=== PATIENT | female | born 1945 | race Caucasian/White ===

== ENCOUNTER 2016-09-16 02:24 | Inpatient (IN) | payer OTHER, MEDICAID ==
[~2016-09-16] VITALS: Ht 172.7 cm; Wt 74.4 kg
[2016-09-16] VITALS (7 sets, daily range): BP systolic 108–197; BP diastolic 47–86; PULSE 55–73; RESP 16–18; TEMP 96.5–98.8; O2SAT 94–98
--- NOTE | 2016-09-16 02:24 | NUR ---
Patient to ER bed 8 to gown for evaluation. Side rails up. Report given to RYLIE EARLY.
--- NOTE | 2016-09-16 02:30 | NUR ---
pt AAOx4 brought by family for CP 02/18 and high blood pressure at home. pt reports little SOB. Hx HTN. aware.
--- NOTE | 2016-09-16 02:40 | NUR ---
ER Dr. Escobar at bedside examining patient.
[2016-09-16] MEDS ORDERED: NACL 0.9% 1,000 ML IV ONE (02:43)
[2016-09-16] MEDS ORDERED: ASPIRIN 81 MG TAB.CHEW PO ONE (02:45)
[2016-09-16] MEDS ORDERED: LORazepam 2 MG/ML VIAL (FOR ER USE) IVP ONE (03:15)
[2016-09-16] MEDS ORDERED: NITROGLYCERIN 1 INCH (GM) OINT. TD ONE (03:15)
[2016-09-16] MEDS ORDERED: cloNIDine HCL 0.1 MG TABLET PO ONE (03:15)
[2016-09-16] MEDS ORDERED: FAMOTIDINE PF 20 MG/2 ML VIAL IVP ONE (03:15)
[2016-09-16] MEDS ORDERED: ONDANSETRON HCL 4 MG/2 ML VIAL IVP ONE (03:30)
[2016-09-16 03:33] LABS: BASOPHILS % (AUTO) 0.5 % (0.0-2.0); EOSINOPHILS # (AUTO) 0.3 K/uL (0.0-0.4); EOSINOPHILS % (AUTO) 5.3 % (0.0-4.0); HEMATOCRIT 35.8 % (36-48); HEMOGLOBIN 12.1 g/dL (12.0-16.0); LYMPHOCYTES # (AUTO) 2.7 K/uL (1.0-5.5); LYMPHOCYTES % (AUTO) 45.8 % (20.5-51.5); MEAN CORPUSCULAR HEMOGLOBIN 28 pg (27-31); MEAN CORPUSCULAR HGB CONC 34 % (32-36); MEAN CORPUSCULAR VOLUME 82 fL (79.0-98.0); MONOCYTES # (AUTO) 0.6 K/uL (0.0-1.0); MONOCYTES % (AUTO) 10.9 % (1.7-9.3); NEUTROPHILS # (AUTO) 2.1 K/uL (1.8-7.7); NEUTROPHILS % (AUTO) 37.5 % (40.0-70.0); PLATELET COUNT (AUTO) 217 K/uL (130-430); RED BLOOD CELL COUNT(AUTO) 4.36 MIL/uL (4.2-6.2); RED CELL DISTRIBUTION WIDTH 12.8 % (9.0-15.0); WHITE BLOOD COUNT (AUTO) 5.7 K/uL (4.8-10.8)
[2016-09-16 03:42] LABS: ANION GAP 7 (5-15); CHLORIDE 102 mmol/L (98-107); CREATININE 0.69 mg/dL (0.55-1.30); GLUCOSE 176 mg/dL (70-99); POTASSIUM 3.4 mmol/L (3.5-5.1); SODIUM SERUM 141 mmol/L (136-145); UREA NITROGEN, BLOOD 29 mg/dL (8-21)
[2016-09-16 03:45] LABS: GFR AFRICAN AMERICAN 108 mL/min (>90); INR 0.9 (0.8-1.2); PROTHROMBIN TIME 9.7 SECS (9.5-12.5)
[2016-09-16 03:51] LABS: ALANINE AMINOTRANSFERASE 61 U/L (12-78); ALBUMIN 3.3 g/dL (3.4-4.8); ASPARTATE AMINOTRANSFERASE 51 U/L (10-37); TOTAL BILIRUBIN 0.2 mg/dL (0.0-1.0); TOTAL PROTEIN, SERUM 7.4 g/dL (6.4-8.3)
[2016-09-16] MEDS ORDERED: CILO50TA PO (05:02)
[2016-09-16] MEDS ORDERED: MELO15TA13 PO (05:02)
[2016-09-16] MEDS ORDERED: ATOR40TA68 PO (05:03)
[2016-09-16] MEDS ORDERED: AMLO5TAB4 PO (05:04)
[2016-09-16] MEDS ORDERED: HYDR-4039 PO (05:04)
[2016-09-16] MEDS ORDERED: METO100T3 PO (05:05)
[2016-09-16] MEDS ORDERED: DONE5TAB3 PO (05:06)
[2016-09-16] MEDS ORDERED: AMLO5TAB92 PO (05:07)
[2016-09-16] MEDS ORDERED: ASPI81TA2 PO (05:08)
[2016-09-16] MEDS ORDERED: INSULIN REGULAR, HUMAN 100 UNITS/ML, 10 ML VIAL (novoLIN R) SUBCUT PRN (05:15)
[2016-09-16] MEDS ORDERED: NITROGLYCERIN 1 INCH (GM) OINT. TP SCH (05:15)
--- NOTE | 2016-09-16 05:30 | NUR ---
ADMIT NOTE Received pt from ER to the floor with a diagnosis of chest pain. Admission process initiated. patient oriented to pain management, safety and call light-teach back done.
--- NOTE | 2016-09-16 05:30 | NUR ---
pt transferred to telemetry via gurney accompanied by RN and MT. placed on heart monitor for transport. no s/s distress or IV infiltration. Placed in bed 116A. Report given to Isabel, all care endorsed.
[2016-09-16 05:32] LABS: BILIRUBIN,URINE NEGATIVE (NEGATIVE); BLOOD, URINE NEGATIVE (NEGATIVE); CLARITY/URINE CLEAR (CLEAR); COLOR,URINE YELLOW (YELLOW); GLUCOSE,URINE NEGATIVE (NEGATIVE); KETONES,URINE NEGATIVE (NEGATIVE); LEUKOCYTE ESTERASE ,URINE TRACE (NEGATIVE); NITRITE, URINE NEGATIVE (NEGATIVE); PH,URINE 6.5 (5.0-8.0); PROTEIN URINE TRACE (NEGATIVE); UROBILINOGEN,URINE 0.2 (0.2-1.0)
[2016-09-16 05:39] LABS: RBC,URINE 0-3 /HPF (0-3)
[2016-09-16 05:40] LABS: BACTERIA,URINE FEW /HPF (None Seen); MUCUS,URINE None Seen /LPF (None Seen)
--- NOTE | 2016-09-16 05:54 | NUR ---
RN ROUNDS RECEIVED PATIENT FROM ER. AOX4 TUNISIAN SPEAKING FEMALE, NO SOB NOTED, ON 2L NC. PATIENT DENIES ANY CHEST PAIN AT THIS TIME. VITALS STABLE. IV LINE INTACT AND PATENT, NO SIGNS OF INFILTRATION. POC DISCUSSED WITH PATIENT, VERBALIZED UNDERSTANDING, ORIENTED TO USE CALL LIGHT FOR NURSE ASSISTANCE, CALL LIGHT WITHIN REACH, WILL CLOSELY MONITOR.
--- NOTE | 2016-09-16 05:57 | NUR ---
Consultation Paged Reason for consultation: Chest Pain Was consult called: Yes Person who was notfied: Ary Consulting Physician: Dr Haynes; Dr Decker is on-call for Dr Haynes [employer] Specialty: Cardio [employer]
--- NOTE | 2016-09-16 06:41 | NUR ---
RN ROUNDS PATIENT RESTING QUIETLY IN BED, REMAINS ON 2L NC. BLOOD SUGAR CHECK THIS AM OF 202. SAFETY MEASURES MAINTAINED, CALL LIGHT REMAINS WITHIN REACH, WILL CONTINUE TO MONITOR UNTIL REPORT GIVEN TO AM NURSE.
[2016-09-16] MEDS: NITROGLYCERIN 1 INCH (GM) OINT. TP SCH ×4 (06:43→23:45)
[2016-09-16] MEDS: INSULIN REGULAR, HUMAN 100 UNITS/ML, 10 ML VIAL (novoLIN R) SUBCUT PRN ×3 (06:50→21:46)
--- NOTE | 2016-09-16 07:40 | NUR ---
CALLED ATTENDING , DR LAZCANO, RE: DIET ORDER. SPOKE TO FABIO
--- NOTE | 2016-09-16 08:00 | NUR ---
AM INITIAL NOTE Pt aaox4 Honduran speaking only but understands very little Italian. No complaints of chest pain or discomfort at this time. No distress noted. monitor worker in place with heart rate 56 sinus gurjit. Educated about safety and fall precautions. Encouraged to call for assistance. Call light within reach. Will monitor.
[2016-09-16] MEDS ORDERED: CARVEDILOL 6.25 MG TABLET (COREG) PO SCH (09:00)
[2016-09-16] MEDS ORDERED: LOSARTAN POTASSIUM 50 MG TABLET (COZAAR) PO SCH (09:00)
[2016-09-16] MEDS: CARVEDILOL 25 MG TABLET (COREG) PO SCH ×2 (09:06→21:39)
[2016-09-16] MEDS: LOSARTAN POTASSIUM 50 MG TABLET (COZAAR) PO SCH (09:06)
--- NOTE | 2016-09-16 10:55 | NUR ---
Rounds Pt asleep but easily awakened. No complaints of chest pain or discomfort. No distress noted. Encouraged to call for assistance. Call light within reach. Will monitor.
--- NOTE | 2016-09-16 12:00 | NUR ---
Notes Pt awake resting in bed eating breakfast. No complaints of chest pain or numbing of face. Blood sugar monitor 169. Insulin sliding scale administered. Kept comfortable. Encouraged to call for assistance. Call light within reach. will monitor.
--- NOTE | 2016-09-16 14:00 | NUR ---
Resting Pt asleep. No signs of facial grimacing for pain or discomfort. No distress noted. Call light within reach. Will monitor.
--- NOTE | 2016-09-16 16:53 | NUR ---
Rounds Pt asleep but easily awakened. No complaints of chest pain or numbing to her face. No distress noted. Blood sugar monitor 126. No insulin needed. Kept comfortable. Will monitor.
--- NOTE | 2016-09-16 18:52 | NUR ---
CLOSING NOTES PT AWAKE RESTING IN BED. NO COMPLAINTS OF CHEST PAIN OR NUMBNESS TO FACE. NO DISTRESS NOTED. ENCOURAGED TO CALL FOR ASSISTANCE. WILL ENDORSE CARE TO INCOMING NURSE.
--- NOTE | 2016-09-16 19:30 | NUR ---
NOTES RECEIVED THE PT FROM THE DAY NURSE,PT CYMRAES SPEAKING ONLY.BUT DENIES PAIN AT THIS TIME.MONITOR IN PLACE AND SHOWS SB IV TO LT WRIST INTACT NO REDNESS OR SWELLING NOTED.CALL LIGHT WITHIN REACH,SAFETY MEASURES IN PROGRESS. CONTINUE TO MONITOR.
[2016-09-16] MEDS ORDERED: ATORVASTATIN 20 MG TABLET PO SCH (21:00)
--- NOTE | 2016-09-16 21:30 | NUR ---
NOTES PT RESTING ,NO C/O CHEST PAIN OR SOB.CONTINUE TO MONITOR.
--- NOTE | 2016-09-16 22:03 | NUR ---
NOTES ACCUCHECK WAS 172 INSULIN GIVEN PER S/S/.
--- NOTE | 2016-09-16 23:39 | NUR ---
NOTES PT SLEEPING,AWAKEN FOR NITRO PASTE.PT WITH NO COMPLAINTS.CONTINUE TO MONITOR.
--- NOTE | 2016-09-17 01:20 | NUR ---
notes pt sleeping,call light within reach.continue to monitor.
--- NOTE | 2016-09-17 03:25 | NUR ---
notes pt remains asleep.call light within reach.continue to monitor.
--- NOTE | 2016-09-17 05:28 | NUR ---
notes pt resting quietly,call light within reach.no respiratory difficulty noted.continue to monitor.
[2016-09-17] MEDS: NITROGLYCERIN 1 INCH (GM) OINT. TP SCH (06:06)
[2016-09-17] MEDS: INSULIN REGULAR, HUMAN 100 UNITS/ML, 10 ML VIAL (novoLIN R) SUBCUT PRN (06:15)
--- NOTE | 2016-09-17 06:21 | NUR ---
notes pt awake alert with no complaints.accucheck was 158,insulin given per s/s,will endorse the care of the pt to the day nurse.
[2016-09-17 07:29] LABS: BASOPHILS % (AUTO) 0.8 % (0.0-2.0); EOSINOPHILS # (AUTO) 0.2 K/uL (0.0-0.4); EOSINOPHILS % (AUTO) 3.9 % (0.0-4.0); HEMATOCRIT 33.4 % (36-48); HEMOGLOBIN 11.1 g/dL (12.0-16.0); LYMPHOCYTES % (AUTO) 36.1 % (20.5-51.5); MEAN CORPUSCULAR HEMOGLOBIN 27 pg (27-31); MEAN CORPUSCULAR HGB CONC 33 % (32-36); MEAN CORPUSCULAR VOLUME 83 fL (79.0-98.0); MONOCYTES # (AUTO) 0.5 K/uL (0.0-1.0); MONOCYTES % (AUTO) 8.8 % (1.7-9.3); NEUTROPHILS # (AUTO) 2.9 K/uL (1.8-7.7); NEUTROPHILS % (AUTO) 50.4 % (40.0-70.0); PLATELET COUNT (AUTO) 190 K/uL (130-430); RED BLOOD CELL COUNT(AUTO) 4.05 MIL/uL (4.2-6.2); WHITE BLOOD COUNT (AUTO) 5.6 K/uL (4.8-10.8)
--- NOTE | 2016-09-17 07:30 | NUR ---
am assessment received pt in bed a/ox4 . tongan speaking.able to understand simple faroese. denies c/o of chest pain or sob at this time.res even and unlabored . no acute distress noted. instructed to use call light for help. verbalized understanding. sr on tele.will continue to monitor
[2016-09-17 07:52] VITALS: BP 136/59; PULSE 59; RESP 20; TEMP 98.2; O2SAT 94
[2016-09-17 08:14] LABS: CALCIUM 8.7 mg/dL (8.4-11.0); CREATININE 0.74 mg/dL (0.55-1.30); POTASSIUM 3.8 mmol/L (3.5-5.1); TOTAL BILIRUBIN 0.4 mg/dL (0.0-1.0)
[2016-09-17 08:15] LABS: ALBUMIN 2.8 g/dL (3.4-4.8); TOTAL PROTEIN, SERUM 6.6 g/dL (6.4-8.3)
[2016-09-17 08:16] LABS: THYROID STIMULATING HORMONE 1.88 uIu/mL (0.34-4.82)
[2016-09-17] MEDS: CARVEDILOL 25 MG TABLET (COREG) PO SCH (08:34)
[2016-09-17] MEDS: LOSARTAN POTASSIUM 50 MG TABLET (COZAAR) PO SCH (08:35)
[2016-09-17] MEDS ORDERED: SITA100T7 PO (09:14)
[2016-09-17] MEDS ORDERED: LOSA50TA3 PO (09:14)
[2016-09-17] MEDS ORDERED: COR25 PO (09:14)
--- NOTE | 2016-09-17 09:49 | NUR ---
Nutrition Update Seferino Scale 18 noted. Pt admitted for chest pain. Diet: [facility] BMI: 24.9 kg/m2 RD to follow per nutrition care standards.
--- NOTE | 2016-09-17 09:49 | NUR ---
md visit seen by dr ho. new order received for discharge
[2016-09-17 09:50] VITALS: BP 136/59; PULSE 62; RESP 18; TEMP 98.2; O2SAT 95
--- NOTE | 2016-09-17 10:45 | NUR ---
D/C Patient Patient given medication reconciliation form and D/C instructions. pt denies any chest pain or presure,Exit Care provided. Patient verbalized understanding. MD discussed with patient the results and treatment provided. Ambulatory with steady gait for discharge to home. Patient in stable condition, ID band removed. IV catheter removed, intact and dressing applied, no active bleeding. Patient educated on pain management. All belongings sent with patient.
--- NOTE | 2016-09-20 10:22 | NUR ---
Discharge Follow Up Phone Call [employer] phoned patient, , and patient's daughter, Michelle, , on 09/18/16, 09/19/16 and 09/20/16 and left voicemail messages with offer of assistance, Social Service contact information, and a request for information on the home health service that patient receives. No further calls will be attempted.
== END 2016-09-17 10:45 | disposition home health service (06) | DRG 305 ==
LOC: SED 02:24 → STU 05:15 → SED 05:30 → STU 06:08
PROVIDERS: ADMIT Internal Medicine; ATTEND Internal Medicine
DX: I16.0 Hypertensive urgency (principal); E11.649 Type 2 diabetes mellitus with hypoglycemia without coma; M19.90 Unspecified osteoarthritis, unspecified site; Z82.49 Family history of ischemic heart disease and other diseases of the circulatory system; E78.5 Hyperlipidemia, unspecified; Z83.3 Family history of diabetes mellitus; Z86.73 Personal history of transient ischemic attack (TIA), and cerebral infarction without residual deficits; Z90.710 Acquired absence of both cervix and uterus; Z79.899 Other long term (current) drug therapy; Z79.82 Long term (current) use of aspirin
CPT/HCPCS: 36415; 71010; 71250-TC; 80053; 80061; 81000-TC; 82962; 83036; 83735-TC; 84443-TC; 84484; 85025; 85379; 85610-TC; 85730-TC; 87086; 93005; 96374; 96375; 99285; J1815; J2060; J2405; J3490; J7030

== ENCOUNTER 2017-12-14 21:10 | Emergency (ER) | payer OTHER, MEDICAID ==
[~2017-12-14] VITALS: Ht 157.5 cm; Wt 65.8 kg
[~2017-12-14 21:10] MED LIST: ASPI81TA2 PO; ATOR40TA68 PO; COR25 PO; LOSA50TA3 PO; SITA100T7 PO
[2017-12-14 21:11] VITALS: BP_SYST 207
[2017-12-14] MEDS ORDERED: NACL 0.9% 500 ML IV ONE (21:45)
[2017-12-14] MEDS ORDERED: NS 500 ML IV ONE (21:45)
[2017-12-14] MEDS ORDERED: CILO50TA PO (22:11)
[2017-12-14] MEDS ORDERED: INSULIN SQ (22:11)
[2017-12-14] MEDS ORDERED: METO-442 PO (22:11)
[2017-12-14] MEDS ORDERED: AMLO5TAB4 PO (22:11)
[2017-12-14] MEDS ORDERED: BENA20TA2 PO (22:11)
[2017-12-14 22:29] LABS: BASOPHILS % (AUTO) 0.6 % (0.0-2.0); EOSINOPHILS # (AUTO) 0.1 K/uL (0.0-0.4); HEMOGLOBIN 13.1 g/dL (12.0-16.0); LYMPHOCYTES % (AUTO) 42.2 % (20.5-51.5); MEAN CORPUSCULAR HEMOGLOBIN 26 pg (27-31); MEAN CORPUSCULAR HGB CONC 33 % (32-36); MEAN CORPUSCULAR VOLUME 81 fL (79.0-98.0); MONOCYTES # (AUTO) 0.4 K/uL (0.0-1.0); NEUTROPHILS # (AUTO) 2.3 K/uL (1.8-7.7); NEUTROPHILS % (AUTO) 45.2 % (40.0-70.0); PLATELET COUNT (AUTO) 266 K/uL (130-430); RED BLOOD CELL COUNT(AUTO) 4.95 MIL/uL (4.2-6.2); RED CELL DISTRIBUTION WIDTH 13.6 % (9.0-15.0); WHITE BLOOD COUNT (AUTO) 4.8 K/uL (4.8-10.8)
[2017-12-14 22:53] LABS: BILIRUBIN,URINE NEGATIVE (NEGATIVE); BLOOD, URINE NEGATIVE (NEGATIVE); CLARITY/URINE SL HAZY (CLEAR); COLOR,URINE YELLOW (YELLOW); GLUCOSE,URINE 3+ (NEGATIVE); KETONES,URINE NEGATIVE (NEGATIVE); LEUKOCYTE ESTERASE ,URINE TRACE (NEGATIVE); NITRITE, URINE NEGATIVE (NEGATIVE); PROTEIN URINE 1+ (NEGATIVE); UROBILINOGEN,URINE 0.2 (0.2-1.0)
[2017-12-14 22:54] LABS: INR 0.9 (0.8-1.2); PROTHROMBIN TIME 9.3 SECS (9.5-12.5)
[2017-12-14 23:08] LABS: ALBUMIN 3.2 g/dL (3.4-4.8); CALCIUM 9.7 mg/dL (8.4-11.0); CREATININE 0.92 mg/dL (0.55-1.30); POTASSIUM 3.1 mmol/L (3.5-5.1); TOTAL BILIRUBIN 0.3 mg/dL (0.0-1.0)
[2017-12-14] MEDS ORDERED: INSULIN NPH/REGULAR 70-30, 100 UNITS/ML, 10 ML VIAL SUBCUT ONE (23:15)
[2017-12-14] MEDS ORDERED: POTASSIUM CHLORIDE 20 MEQ TAB.PRT.SR PO ONE (23:15)
[2017-12-14 23:22] LABS: RBC,URINE 0-3 /HPF (0-3)
[2017-12-14 23:23] LABS: BACTERIA,URINE RARE /HPF (None Seen)
[2017-12-14 23:55] VITALS: BP_SYST 173
== END 2017-12-14 23:55 | disposition home or self-care (01) ==
LOC: SED 21:10
DX: E11.65 Type 2 diabetes mellitus with hyperglycemia (principal); E87.6 Hypokalemia; C75.3 Malignant neoplasm of pineal gland; E11.9 Type 2 diabetes mellitus without complications; I10 Essential (primary) hypertension; Z86.73 Personal history of transient ischemic attack (TIA), and cerebral infarction without residual deficits; Z79.899 Other long term (current) drug therapy; Z79.4 Long term (current) use of insulin
CPT/HCPCS: 36415; 70450; 71045; 80053; 81000; 83605; 84484; 85025; 85610; 85730; 87040; 87086; 93005; 96360; 96361; 96372; 99285; J7040; J1815